=== PATIENT | male | born 1965 | race Caucasian/White ===

== ENCOUNTER 2024-09-03 18:56 | Emergency (ER) | payer BC, SELFPAY ==
[2024-09-03 19:16] VITALS: BP 141/82
[2024-09-03] MEDS: GENOPTIC 0.3% EYE DROPS 1 DROP OPHTH (20:20)
[2024-09-03] MEDS: ADACEL 0.5 ML IM (20:21)
--- NOTE | 2024-09-03 20:57 | ED.SKININJ ---
HPI-Injury
General
Chief Complaint: Eye Problems
Source: patient
Exam Limitations: none
Time Seen by Provider: 09/03/24 19:43
History of Present Illness-Injury
Initial Injury comments:
59-year-old male presents complaining of left eye discomfort and blurry vision of the left eye starting today. He was riding a tractor and a branch got caught and flung and hit him in the eye. Denies any bleeding. No headache. He notes he is
light sensitive. No other complaints at this time. He does not wear glasses or contact
Phy Exam
Physical Exam
Physical Exam:
General: Well-appearing male no acute respiratory distress HEENT normocephalic
Atraumatic left eye examined with fluorescein stain and Darby lamp. The patient's discomfort was relieved with tetracaine solution. After staining the eye and the patient has a larger corneal abrasion covering the entire pupil and the lateral
cornea measures about 4 x 2 mm in overall dimension. No visible foreign bodies the lids were everted. The pupil is round and reactive to light. There is no hyphema.
Sclera slightly injected
Skin surrounding the eye is without erythema
Course
Orders/Labs/Results
Orders:
Orders
09/03/24 19:58
Tetracaine HCl [Tetracaine 0.5% Ophthalmic Solution] 1 drop .ROUTE .STK-MED ONE
09/03/24 20:02
Fluorescein Sodium [Ful-Raquel] 2 mg .ROUTE .STK-MED ONE
Tetracaine HCl [Tetracaine 0.5% Ophthalmic Solution] 1 drop .ROUTE .STK-MED ONE
09/03/24 20:16
Gentamicin [Genoptic 0.3% Eye Drops] See Dose Instructions OPHTH NOW STA
Tetanus/Diphth/Acelpertussis [Adacel] 0.5 ml IM .ONCE ONE
Vital Signs
Initial and Last Documented VS:
Initial Vital Signs
Temp Pulse Resp BP Pulse Ox
98.5 F 91 18 141/82 96
09/03/24 19:16 09/03/24 19:16 09/03/24 19:16 09/03/24 19:16 09/03/24 19:16
Last Documented Vital Signs
Temp Pulse Resp BP Pulse Ox
98.5 F 91 18 141/82 96
09/03/24 19:16 09/03/24 19:16 09/03/24 19:16 09/03/24 19:16 09/03/24 19:16
MDM/Problems Addressed
Differential Diagnosis Includes:
Patient exam most consistent with corneal abrasion. Tetanus vaccine updated we will start on gentamicin drops and recommend follow-up with ophthalmology. Stable for discharge
*Critical Care Note
Total Time (30-74mins, 75-104mins- exclusive of procedures): Not Applicable
ED Attending Note
-
Portions of this chart may have been created with voice recognition software.� Occasional wrong word or��sound alike� substitutions may have occurred due to the inherent limitations of voice recognition software.
Discharge Plan
Departure
Patient Disposition: Home (Routine Discharge)
Date of Disposition: 09/03/24
Time of Disposition: 21:00
Patient with high blood pressure during this ER visit?: No
Discharge Problem:
Corneal abrasion
Instructions: Corneal Abrasion (DC)
Referrals:
Ellen Elam MD [Active] -
UNKNOWN - PT DOES,NOT KNOW [Family Provider] -
Activity Restrictions/Additional Instructions:
Use 1 drop into the left eye every 4 hours. Apply cool compresses. You may take Tylenol or ibuprofen for pain. Follow-up with eye doctor
Interventions
Interventions:
*Risk Screen - Suicide Last Done: 09/03/24 19:18
*General Assessment Last Done: 09/03/24 19:18
*Neglect/Abuse Screening Last Done: 09/03/24 19:18
*ED COVID-19 Vaccine History Last Done: 09/03/24 19:18
Discharge Date and Time
Print Language: SLOVAK
== END 2024-09-03 21:09 | disposition home or self-care (01) ==
LOC: EMR 18:56
PROVIDERS: EMERGENCY PHYSICIAN Emergency Medicine
DX: S05.00XA Injury of conjunctiva and corneal abrasion without foreign body, unspecified eye, initial encounter (principal); W22.8XXA Striking against or struck by other objects, initial encounter; Z23 Encounter for immunization
CPT/HCPCS: 90471; 99283; 90715